=== PATIENT | female | born 1975 | race Two or more races ===

== ENCOUNTER 2019-08-14 13:36 | Emergency (ER) | payer OTHER ==
[~2019-08-14] VITALS: Ht 172.7 cm; Wt 77.3 kg
[2019-08-14] MEDS ORDERED: GABA-1181 PO (14:06)
[2019-08-14] MEDS ORDERED: DIVA250T45 PO (14:06)
[2019-08-14] MEDS ORDERED: TURM500C4 PO (14:06)
[2019-08-14] MEDS ORDERED: CLON.5 PO (14:06)
[2019-08-14] MEDS ORDERED: MIRT-89 PO (14:06)
[2019-08-14] MEDS ORDERED: PARO20TA24 PO (14:06)
[2019-08-14] MEDS ORDERED: ADAL40SY SQ (14:06)
[2019-08-14] MEDS ORDERED: METH2.5 PO (14:06)
[2019-08-14] MEDS ORDERED: FOLI-130 PO (14:06)
[2019-08-14] MEDS ORDERED: SULF500EC PO (14:06)
[2019-08-14] MEDS ORDERED: OXYC-601 PO (14:06)
[2019-08-14] MEDS ORDERED: LAMO100 PO (14:06)
[2019-08-14] MEDS ORDERED: BACL10TA PO (14:06)
[2019-08-14 14:48] LABS: EOSINOPHILS % (AUTO) 2.3 % (1.0-6.0); HEMOGLOBIN 13.6 g/dL (12.0-16.0); MEAN CORPUSCULAR HEMOGLOBIN 30.5 pg (26.0-34.0); MEAN CORPUSCULAR HGB CONC 32.4 G/dL (31.0-37.0); MEAN CORPUSCULAR VOLUME 94 fL (80-100); MONOCYTES # (AUTO) 0.6 K/uL (0.1-1.0); MONOCYTES % (AUTO) 9.4 % (2.0-9.0); NEUTROPHILS # (AUTO) 3.4 K/uL (1.8-7.7); NEUTROPHILS % (AUTO) 55.3 % (40.0-70.0); PLATELET COUNT (AUTO) 254 K/uL (150-450); RED BLOOD CELL COUNT(AUTO) 4.46 MIL/uL (4.00-5.20); RED CELL DISTRIBUTION WIDTH 13.3 % (11.5-14.5)
[2019-08-14 15:00] LABS: ANION GAP 6 mmol/L (8-16); CALCIUM, TOTAL 9.1 mg/dL (8.8-10.5); CARBON DIOXIDE 29 mmol/L (22-29); CHLORIDE 105 mmol/L (98-107); CREATININE 0.94 mg/dL (0.60-1.30); GLOMERULAR FILTR. RATE CALC > 60 mL/min (>60); GLUCOSE,RANDOM 84 mg/dL (70-110); POTASSIUM 4.1 mmol/L (3.5-5.1); SODIUM SERUM 140 mmol/L (136-145); UREA NITROGEN, BLOOD 7 mg/dL (7-18)
[2019-08-14 15:12] LABS: ALANINE AMINOTRANSFERASE 22 U/L (12-78); ALBUMIN 3.8 g/dL (3.4-5.0); ALKALINE PHOSPHATASE 65 U/L (46-116); ASPARTATE AMINOTRANSFERASE 14 U/L (15-37); BILIRUBIN,TOTAL 0.3 mg/dL (0.1-1.0); HCG,QUANTITATIVE 1 mIU/mL (0-6); TOTAL PROTEIN, SERUM 7.3 g/dL (6.4-8.2)
[2019-08-14 15:23] LABS: INFLUENZA TYPE A NEGATIVE FOR TYPE A (NEGATIVE); INFLUENZA TYPE B NEGATIVE FOR TYPE B (NEGATIVE)
[2019-08-14] MEDS ORDERED: SODIUM CHLORIDE 0.9% 1,000 ML IV ONE (15:30)
[2019-08-14 17:14] VITALS: BP 113/67
== END 2019-08-14 17:17 | disposition home or self-care (01) ==
LOC: EMS 13:38
DX: J06.9 Acute upper respiratory infection, unspecified (principal); F41.9 Anxiety disorder, unspecified; F32.9 Major depressive disorder, single episode, unspecified; Z20.828 Contact with and (suspected) exposure to other viral communicable diseases
CPT/HCPCS: 87635; 87804